=== PATIENT | female | born 1945 | race Caucasian/White ===

== ENCOUNTER 2024-04-29 07:35 | Inpatient (IN) | payer MEDICARE, OTHER ==
[~2024-04-29] VITALS: Ht 162.6 cm; Wt 108.5 kg
[2024-04-29 08:19] LABS: BASO % 0.2 % (0.0-1.0); EOS # 0.1 10^3/uL (0.0-0.5); EOS % 0.5 % (0.0-3.0); HEMATOCRIT 40.2 % (36.0-47.0); HEMOGLOBIN 12.8 g/dl (12.0-15.5); LYMPH # 1.4 10^3/uL (1.5-5.0); LYMPH % 10.3 % (24.0-44.0); MEAN CORPUSCULAR HEMOGLOBIN 29.8 pg (27.0-33.0); MEAN CORPUSCULAR HGB CONC 31.8 g/dl (32.0-36.5); MEAN CORPUSCULAR VOLUME 93.5 fl (80.0-96.0); MONO # 1.3 10^3/uL (0.0-0.8); MONO % 9.9 % (2.0-8.0); NEUTROPHILS # 10.4 10^3/uL (1.5-8.5); NEUTROPHILS % 78.6 % (36.0-66.0); PLATELET COUNT, AUTOMATED 178 10^3/uL (150-450); WHITE BLOOD COUNT 13.2 10^3/uL (4.0-10.0)
[2024-04-29] MEDS ORDERED: ALLO10TA PO (08:24)
[2024-04-29] MEDS ORDERED: IRON27TA2 PO (08:24)
[2024-04-29] MEDS ORDERED: LEVO50TA5 PO (08:24)
[2024-04-29] MEDS ORDERED: OXYB10TA23 PO (08:24)
[2024-04-29] MEDS ORDERED: LISI5TAB11 PO (08:24)
[2024-04-29] MEDS ORDERED: ROPI1TAB73 PO (08:24)
[2024-04-29] MEDS ORDERED: CLOP75TA99 PO (08:24)
[2024-04-29] MEDS ORDERED: CARV6.25 PO (08:24)
[2024-04-29] MEDS ORDERED: SPIR-10 PO (08:24)
[2024-04-29] MEDS ORDERED: PROZ20CA11 PO (08:24)
[2024-04-29] MEDS ORDERED: CELE0.09 PO (08:24)
[2024-04-29] MEDS ORDERED: PRAV10TA4 PO (08:24)
[2024-04-29 08:44] LABS: ALBUMIN 3.3 G/DL (3.2-5.2); ALKALINE PHOSPHATASE 130 U/L (35-104); ALT/SGPT 10 U/L (7.0-40); AST/SGOT < 8 U/L (<34); BILIRUBIN,DIRECT 0.3 MG/DL (<0.4); BILIRUBIN,TOTAL 0.8 MG/DL (0.3-1.2); BLOOD UREA NITROGEN 34 MG/DL (9-23); CALCIUM LEVEL 10.5 MG/DL (8.3-10.6); CARBON DIOXIDE LEVEL 23 MMOL/L (20-31); CHLORIDE LEVEL 108 MMOL/L (98-107); CK-MB VALUE MASS 2.1 NG/ML (<3.6); CPK CREATINE PHOSPHOKINASE 22 U/L (34-145); CREATININE FOR GFR 1.37 MG/DL (0.55-1.30); GLOMERULAR FILTRATION RATE 39.8 (>39); GLUCOSE, FASTING 131 MG/DL (74-106); MB/CK RELATIVE INDEX 9.54 (< OR =4); POTASSIUM SERUM 4.8 MMOL/L (3.5-5.1); SODIUM LEVEL 137 MMOL/L (136-145); TOTAL PROTEIN 6.3 G/DL (5.7-8.2)
[2024-04-29 08:47] LABS: THYROXINE (T4) 7.9 UG/DL (4.5-10.9)
[2024-04-29 08:48] LABS: THYROID STIMULATING HORMONE 4.459 uIU/ML (0.55-4.78)
[2024-04-29] MEDS ORDERED: HOME MED LIST COMPLETE! XX SCH (09:20)
[2024-04-29] MEDS ORDERED: MED REC CURRENTLY UNOBTAINABLE XX SCH (09:20)
[2024-04-29] MEDS ORDERED: ISOVUE-370 76% 100ML VIAL As Ordered ONE (10:19)
[2024-04-29] MEDS: IPRATROPIUM 0.5MG/ALBUTEROL 2.5MG INH SOL UD 3ML (DUONEB) NEB ONE (11:23)
[2024-04-29 12:04] LABS: INR 1.1; PROTHROMBIN TIME 14.5 SECONDS (12.5-14.5)
[2024-04-29] MEDS ORDERED: HEPARIN SOD (PORCINE) 5000UNITS/ML 1ML VIAL/SYRINGE IV PRN (12:35)
[2024-04-29] MEDS: HEPARIN DRIP 25,000 UNITS in IV 1 EA IV SCH (13:30)
[2024-04-29] MEDS: HEPARIN SOD (PORCINE) 5000UNITS/ML 1ML VIAL/SYRINGE IV ONE (13:31)
[2024-04-29] MEDS: oxyBUTYnin *DITROPAN XL* 5 MG TABCR PO SCH (13:52)
[2024-04-29] MEDS: LEVOTHYROXINE 50MCG TABLET (0.05MG) PO SCH (13:52)
[2024-04-29] MEDS: FLUoxetine 20MG CAP PO SCH (13:52)
[2024-04-29] MEDS: allopurinoL 300 MG TAB PO SCH (13:52)
[2024-04-29 14:25] VITALS: BP 145/63; TEMP 97.9; O2SAT 95
[2024-04-29] MEDS ORDERED: BUPR-597 PO (14:45)
[2024-04-29] MEDS ORDERED: TRAM50TA2 PO (14:45)
[2024-04-29] MEDS ORDERED: AMOX875T PO (14:45)
[2024-04-29] MEDS ORDERED: FURO40TA2 PO (14:45)
[2024-04-29] MEDS ORDERED: [UNRECOGNIZED DRUG - CODE] PO (14:45)
[2024-04-29] MEDS ORDERED: SPIR1CAP INH (14:45)
[2024-04-29] MEDS ORDERED: TIRZ2.5P SQ (14:45)
[2024-04-29] MEDS ORDERED: ALBU8.5H INH (14:45)
[2024-04-29] MEDS ORDERED: CARV3.12 PO (14:45)
[2024-04-29] MEDS ORDERED: traMADol 50 MG TAB PO PRN (15:00)
[2024-04-29] MEDS ORDERED: IPRATROPIUM 0.5MG/ALBUTEROL 2.5MG INH SOL UD 3ML (DUONEB) NEB PRN (15:00)
[2024-04-29 15:55] VITALS: BP 120/80; TEMP 97.8; O2SAT 95
[2024-04-29] MEDS: PRAVASTATIN 10 MG TAB PO SCH (18:58)
[2024-04-29] MEDS: buPROPion **XL** TABLET 150MG (WELLBUTRIN XL) PO SCH (18:58)
[2024-04-29] MEDS: rOPINIRole 1MG TAB PO SCH (20:06)
[2024-04-29] MEDS: DOCUSATE SODIUM 100MG CAPSULE PO SCH (20:07)
[2024-04-29 20:27] VITALS: BP 112/73; TEMP 97.7; O2SAT 99
[2024-04-29 23:43] VITALS: BP 135/61; TEMP 98.2; O2SAT 95
[2024-04-30] VITALS (9 sets, daily range): BP systolic 125–168; BP diastolic 53–84; TEMP 96.8–98.2; O2SAT 95–98
[2024-04-30 05:10] LABS: HEMATOCRIT 40.3 % (36.0-47.0); HEMOGLOBIN 12.7 g/dl (12.0-15.5); MEAN CORPUSCULAR HEMOGLOBIN 29.7 pg (27.0-33.0); MEAN CORPUSCULAR HGB CONC 31.5 g/dl (32.0-36.5); MEAN CORPUSCULAR VOLUME 94.4 fl (80.0-96.0); PLATELET COUNT, AUTOMATED 233 10^3/uL (150-450); RED BLOOD COUNT 4.27 10^6/uL (4.00-5.40); WHITE BLOOD COUNT 17.6 10^3/uL (4.0-10.0)
[2024-04-30 05:36] LABS: CALCIUM LEVEL 9.9 MG/DL (8.3-10.6); CREATININE FOR GFR 1.35 MG/DL (0.55-1.30); GLOMERULAR FILTRATION RATE 40.5 (>39); POTASSIUM SERUM 4.5 MMOL/L (3.5-5.1)
[2024-04-30] MEDS: ACETAMINOPHEN 325 MG TAB PO ONE (06:11)
[2024-04-30] MEDS: TIOTROPIUM INHALER/CAPSULE (SPIRIVA) INH SCH (08:27)
[2024-04-30] MEDS: FERROUS SULFATE 325MG TAB PO SCH (09:04)
[2024-04-30 09:45] LABS: PROCALCITONIN 0.13 ng/ml
[2024-04-30 10:45] LABS: DRVV SCREEN 38.6 SECONDS
[2024-04-30 10:51] LABS: PTT LUPUS TYPE ANTICOAG SCREEN 0.98 (0-1.20)
[2024-04-30] MEDS: SYMBICORT 160/4.5MCG INHALER 6GM INH SCH (11:40)
[2024-04-30] MEDS ORDERED: ISOVUE-300 61% 100ML VIAL As Ordered ONE (16:53)
[2024-04-30] MEDS ORDERED: HEPARIN 1,000UNITS/ML 10ML VIAL (FOR RADIOLOGY & DIALYSIS ONLY) As Ordered ONE (17:22)
[2024-05-01] VITALS (20 sets, daily range): BP systolic 124–150; BP diastolic 55–70; TEMP 97.3–98.3; O2SAT 93–98
[2024-05-01 02:31] LABS: CARDIOLIPIN IGA ANTIBODY < 2.0 APL-U/mL (<20.0); CARDIOLIPIN IGG ANTIBODY < 2.0 GPL-U/mL (<20.0); CARDIOLIPIN IGM ANTIBODY < 2.0 MPL-U/mL (<20.0)
[2024-05-01 07:43] LABS: BASO % 0.2 % (0.0-1.0); EOS % 0.4 % (0.0-3.0); HEMATOCRIT 32.5 % (36.0-47.0); LYMPH # 1.1 10^3/uL (1.5-5.0); LYMPH % 10.2 % (24.0-44.0); MEAN CORPUSCULAR HEMOGLOBIN 30.5 pg (27.0-33.0); MEAN CORPUSCULAR HGB CONC 32.6 g/dl (32.0-36.5); MEAN CORPUSCULAR VOLUME 93.7 fl (80.0-96.0); MONO # 1.2 10^3/uL (0.0-0.8); MONO % 10.5 % (2.0-8.0); NEUTROPHILS # 8.6 10^3/uL (1.5-8.5); NEUTROPHILS % 78.2 % (36.0-66.0); PLATELET COUNT, AUTOMATED 181 10^3/uL (150-450); RED BLOOD COUNT 3.47 10^6/uL (4.00-5.40)
[2024-05-01 07:45] LABS: HEMOGLOBIN 10.6 g/dl (12.0-15.5)
[2024-05-01 08:07] LABS: CALCIUM LEVEL 9.7 MG/DL (8.3-10.6); CREATININE FOR GFR 1.13 MG/DL (0.55-1.30); GLOMERULAR FILTRATION RATE 49.7 (>39); POTASSIUM SERUM 4.8 MMOL/L (3.5-5.1)
[2024-05-01] MEDS ORDERED: ELIQ5TAB PO (10:38)
[2024-05-01] MEDS: FUROSEMIDE 40MG/4ML VIAL IV ONE (12:17)
[2024-05-02] VITALS (11 sets, daily range): BP systolic 137–161; BP diastolic 62–83; TEMP 98–98.9; O2SAT 93–96
[2024-05-02 06:51] LABS: BASO % 0.2 % (0.0-1.0); EOS # 0.2 10^3/uL (0.0-0.5); EOS % 2.4 % (0.0-3.0); HEMATOCRIT 30.5 % (36.0-47.0); LYMPH # 1.2 10^3/uL (1.5-5.0); LYMPH % 14.9 % (24.0-44.0); MEAN CORPUSCULAR HEMOGLOBIN 30.5 pg (27.0-33.0); MEAN CORPUSCULAR HGB CONC 32.8 g/dl (32.0-36.5); MONO # 0.7 10^3/uL (0.0-0.8); MONO % 9.2 % (2.0-8.0); NEUTROPHILS # 5.8 10^3/uL (1.5-8.5); NEUTROPHILS % 72.7 % (36.0-66.0); PLATELET COUNT, AUTOMATED 184 10^3/uL (150-450); RED BLOOD COUNT 3.28 10^6/uL (4.00-5.40)
[2024-05-02 07:25] LABS: CREATININE FOR GFR 1.26 MG/DL (0.55-1.30); GLOMERULAR FILTRATION RATE 43.8 (>39); POTASSIUM SERUM 4.3 MMOL/L (3.5-5.1)
[2024-05-02] MEDS: IPRATROPIUM 0.5MG/ALBUTEROL 2.5MG INH SOL UD 3ML (DUONEB) NEB SCH (08:00)
[2024-05-02] MEDS: FUROSEMIDE 40MG/4ML VIAL IV ONE (10:50)
[2024-05-02] MEDS: methylPREDNISolone 125MG 2ML VIAL IV ONE (10:50)
[2024-05-03] VITALS (14 sets, daily range): BP systolic 151–172; BP diastolic 71–89; TEMP 98–98.9; O2SAT 92–96
[2024-05-03 04:30] LABS: EOS % 0.2 % (0.0-3.0); LYMPH # 0.5 10^3/uL (1.5-5.0); LYMPH % 7.3 % (24.0-44.0); MEAN CORPUSCULAR HEMOGLOBIN 29.6 pg (27.0-33.0); MEAN CORPUSCULAR HGB CONC 32.3 g/dl (32.0-36.5); MEAN CORPUSCULAR VOLUME 91.7 fl (80.0-96.0); MONO # 0.3 10^3/uL (0.0-0.8); MONO % 5.3 % (2.0-8.0); NEUTROPHILS # 5.4 10^3/uL (1.5-8.5); NEUTROPHILS % 86.6 % (36.0-66.0); PLATELET COUNT, AUTOMATED 199 10^3/uL (150-450); RED BLOOD COUNT 3.38 10^6/uL (4.00-5.40); WHITE BLOOD COUNT 6.3 10^3/uL (4.0-10.0)
[2024-05-03 04:54] LABS: CALCIUM LEVEL 9.5 MG/DL (8.3-10.6); CREATININE FOR GFR 1.24 MG/DL (0.55-1.30); GLOMERULAR FILTRATION RATE 44.7 (>39); POTASSIUM SERUM 4.3 MMOL/L (3.5-5.1)
[2024-05-03] MEDS: predniSONE 20 MG TAB PO SCH (09:16)
[2024-05-03] MEDS: lisinopriL 5 MG TAB PO SCH (09:16)
[2024-05-03] MEDS: CARVedilol 3.125 MG TAB PO SCH (09:16)
[2024-05-03] MEDS ORDERED: LISI10TA22 PO (10:44)
[2024-05-03] MEDS ORDERED: PRED10TA2 PO (10:44)
[2024-05-03] MEDS: lisinopriL 5 MG TAB PO ONE (11:20)
[2024-05-03] MEDS: APIXABAN 5 MG TAB (ELIQUIS) PO SCH (11:20)
[2024-05-03 17:27] LABS: PHOSPHOLIPIDS LEVEL 139 mg/dL (151-264)
[2024-05-04 02:32] LABS: PROTEIN C FUNCTIONAL ACTIVITY 78 % normal (70-180); PROTEIN S FUNCTIONAL ACTIVITY 61 % normal (60-140)
[2024-05-05 01:32] LABS: ANTI THROMBIN 3 ANTIGEN IMMUNO 95 % normal (80-120); ANTI THROMBIN 3 FUNCT ACTIVITY 99 % normal (80-135)
== END 2024-05-03 13:19 | disposition home or self-care (01) | DRG 164 ==
LOC: M ED 07:35 → M ED INP 12:34 → M PCU 14:10
PROVIDERS: ADMIT Internal Medicine; ATTEND Internal Medicine
PROC: B246ZZZ Ultrasonography of Right and Left Heart (ICD-10-PCS; 2024-04-29)
PROC: 02CR3ZZ Extirpation of Matter from Left Pulmonary Artery, Percutaneous Approach (ICD-10-PCS; 2024-04-30)
PROC: 02CQ3ZZ Extirpation of Matter from Right Pulmonary Artery, Percutaneous Approach (ICD-10-PCS; principal; 2024-04-30 15:00)
DX: I26.92 Saddle embolus of pulmonary artery without acute cor pulmonale (principal); N17.9 Acute kidney failure, unspecified; I69.354 Hemiplegia and hemiparesis following cerebral infarction affecting left non-dominant side; I82.432 Acute embolism and thrombosis of left popliteal vein; J44.1 Chronic obstructive pulmonary disease with (acute) exacerbation; I50.30 Unspecified diastolic (congestive) heart failure; I5A Non-ischemic myocardial injury (non-traumatic); L76.32 Postprocedural hematoma of skin and subcutaneous tissue following other procedure; I27.20 Pulmonary hypertension, unspecified; E03.9 Hypothyroidism, unspecified; G89.4 Chronic pain syndrome; F39 Unspecified mood [affective] disorder; E87.70 Fluid overload, unspecified; D50.9 Iron deficiency anemia, unspecified; I11.0 Hypertensive heart disease with heart failure; N32.81 Overactive bladder; M10.9 Gout, unspecified; G25.81 Restless legs syndrome; Z87.891 Personal history of nicotine dependence; Z79.890 Hormone replacement therapy; Z79.899 Other long term (current) drug therapy; Z90.49 Acquired absence of other specified parts of digestive tract; Z90.79 Acquired absence of other genital organ(s); Z11.52 Encounter for screening for COVID-19; Z79.02 Long term (current) use of antithrombotics/antiplatelets

== ENCOUNTER → 2024-05-13 | Outpatient (CLI) | payer MEDICARE, OTHER ==
[~2024-05-13] MED LIST: ALBU8.5H INH; ALLO10TA PO; AMOX875T PO; BUPR-597 PO; CARV3.12 PO; CARV6.25 PO; CELE0.09 PO; CLOP75TA99 PO; ELIQ5TAB PO; FURO40TA2 PO; IRON27TA2 PO; LEVO50TA5 PO; LISI10TA22 PO; LISI5TAB11 PO; OXYB10TA23 PO; PRAV10TA4 PO; PRED10TA2 PO; PROZ20CA11 PO; ROPI1TAB73 PO; SPIR-10 PO; SPIR1CAP INH; TIRZ2.5P SQ; TRAM50TA2 PO; [UNRECOGNIZED DRUG - CODE] PO
== END ==
LOC: M RAD 14:25
PROVIDERS: ATTEND Internal Medicine Hematology
DX: R06.02 Shortness of breath (principal); Z53.9 Procedure and treatment not carried out, unspecified reason

== ENCOUNTER → 2024-05-13 | Outpatient (CLI) | payer MEDICARE, OTHER ==
[~2024-05-13] MED LIST changes: +ISOVUE-370 76% 100ML VIAL As Ordered ONE
== END ==
LOC: M RAD 15:53
PROVIDERS: ATTEND Student in an Organized Health Care Education/Training Program
DX: J90 Pleural effusion, not elsewhere classified (principal); I26.99 Other pulmonary embolism without acute cor pulmonale; Z09 Encounter for follow-up examination after completed treatment for conditions other than malignant neoplasm; R06.02 Shortness of breath
CPT/HCPCS: 71275; Q9967

== ENCOUNTER → 2024-05-19 | Outpatient (POV) | payer OTHER ==
[~2024-05-19] VITALS: Ht 162.6 cm; Wt 108.1 kg
[~2024-05-19] MED LIST changes: -ISOVUE-370 76% 100ML VIAL As Ordered ONE; +SYMB16INH INH; +VENTAER INH
[2024-05-19 14:15] VITALS: BP 110/53; O2SAT 96
== END ==
LOC: M IRPOV 13:48
PROVIDERS: ATTEND Radiology Diagnostic Radiology
DX: Z48.812 Encounter for surgical aftercare following surgery on the circulatory system (principal); I26.92 Saddle embolus of pulmonary artery without acute cor pulmonale; J90 Pleural effusion, not elsewhere classified; I31.39 Other pericardial effusion (noninflammatory); E87.70 Fluid overload, unspecified; R06.09 Other forms of dyspnea; R32 Unspecified urinary incontinence; Z79.01 Long term (current) use of anticoagulants; T50.1X6A Underdosing of loop [high-ceiling] diuretics, initial encounter; Z91.128 Patient's intentional underdosing of medication regimen for other reason
CPT/HCPCS: 36415; 80053; 83880; 85025; G0463

== ENCOUNTER → 2024-05-19 | Outpatient (CLI) | payer OTHER ==
[~2024-05-19] MED LIST changes: -SYMB16INH INH
[2024-05-19 15:46] LABS: BASO # 0.1 10^3/uL (0.0-0.2); BASO % 0.4 % (0.0-1.0); EOS # 0.1 10^3/uL (0.0-0.5); EOS % 0.7 % (0.0-3.0); HEMATOCRIT 34.2 % (36.0-47.0); HEMOGLOBIN 10.6 g/dl (12.0-15.5); LYMPH # 1.1 10^3/uL (1.5-5.0); LYMPH % 7.3 % (24.0-44.0); MEAN CORPUSCULAR HEMOGLOBIN 28.3 pg (27.0-33.0); MEAN CORPUSCULAR VOLUME 91.2 fl (80.0-96.0); MONO % 6.9 % (2.0-8.0); NEUTROPHILS # 12.3 10^3/uL (1.5-8.5); NEUTROPHILS % 82.8 % (36.0-66.0); PLATELET COUNT, AUTOMATED 370 10^3/uL (150-450); RED BLOOD COUNT 3.75 10^6/uL (4.00-5.40); WHITE BLOOD COUNT 14.9 10^3/uL (4.0-10.0)
[2024-05-19 16:07] LABS: ALBUMIN 2.3 G/DL (3.2-5.2); BILIRUBIN,TOTAL 0.4 MG/DL (0.3-1.2); CALCIUM LEVEL 10.3 MG/DL (8.3-10.6); CREATININE FOR GFR 1.37 MG/DL (0.55-1.30); GLOMERULAR FILTRATION RATE 39.8 (>39); POTASSIUM SERUM 5.1 MMOL/L (3.5-5.1); TOTAL PROTEIN 6.1 G/DL (5.7-8.2)
== END ==
LOC: M LAB 13:52
PROVIDERS: ATTEND Student in an Organized Health Care Education/Training Program
DX: Z09 Encounter for follow-up examination after completed treatment for conditions other than malignant neoplasm (principal); R06.02 Shortness of breath

== ENCOUNTER 2024-05-31 17:33 | Emergency (ER) | payer OTHER ==
[~2024-05-31] VITALS: Ht 157.5 cm; Wt 105.7 kg
[2024-05-31 18:37] LABS: BASO % 0.2 % (0.0-1.0); EOS % 0.2 % (0.0-3.0); HEMATOCRIT 27.5 % (36.0-47.0); HEMOGLOBIN 8.5 g/dl (12.0-15.5); LYMPH # 0.9 10^3/uL (1.5-5.0); LYMPH % 10.8 % (24.0-44.0); MEAN CORPUSCULAR HEMOGLOBIN 28.1 pg (27.0-33.0); MEAN CORPUSCULAR HGB CONC 30.9 g/dl (32.0-36.5); MEAN CORPUSCULAR VOLUME 91.1 fl (80.0-96.0); MONO # 0.6 10^3/uL (0.0-0.8); MONO % 6.7 % (2.0-8.0); NEUTROPHILS # 6.8 10^3/uL (1.5-8.5); NEUTROPHILS % 80.4 % (36.0-66.0); PLATELET COUNT, AUTOMATED 346 10^3/uL (150-450); RED BLOOD COUNT 3.02 10^6/uL (4.00-5.40); WHITE BLOOD COUNT 8.5 10^3/uL (4.0-10.0)
[2024-05-31 18:50] LABS: INR 2.19; PARTIAL THROMBOPLASTIN TIME 47.3 SECONDS (24.8-34.2); PROTHROMBIN TIME 24.4 SECONDS (12.5-14.5)
[2024-05-31 19:01] LABS: ETHYL ALCOHOL (ETHANOL) 0.003 % (0.000-0.010)
[2024-05-31 19:03] LABS: ALBUMIN 2.5 G/DL (3.2-5.2); BILIRUBIN,DIRECT 0.2 MG/DL (<0.4); BILIRUBIN,TOTAL 0.5 MG/DL (0.3-1.2); CALCIUM LEVEL 9.9 MG/DL (8.3-10.6); CREATININE FOR GFR 1.71 MG/DL (0.55-1.30); GLOMERULAR FILTRATION RATE 30.8 (>39); POTASSIUM SERUM 4.8 MMOL/L (3.5-5.1); TOTAL PROTEIN 5.5 G/DL (5.7-8.2)
[2024-05-31] MEDS ORDERED: ISOVUE-370 76% 100ML VIAL As Ordered ONE (19:23)
[2024-05-31] MEDS: PANTOPRAZOLE 40MG VIAL IV ONE (20:17)
[2024-05-31] MEDS ORDERED: ELIQ5TAB PO (21:47)
[2024-05-31] MEDS ORDERED: LISI10TA22 PO (21:47)
[2024-05-31] MEDS ORDERED: HOME MED LIST COMPLETE! XX SCH (21:50)
[2024-05-31 23:00] LABS: HEMATOCRIT 24.4 % (36.0-47.0); HEMOGLOBIN 7.4 g/dl (12.0-15.5); MEAN CORPUSCULAR HEMOGLOBIN 27.7 pg (27.0-33.0); MEAN CORPUSCULAR HGB CONC 30.3 g/dl (32.0-36.5); MEAN CORPUSCULAR VOLUME 91.4 fl (80.0-96.0); PLATELET COUNT, AUTOMATED 257 10^3/uL (150-450); RED BLOOD COUNT 2.67 10^6/uL (4.00-5.40); WHITE BLOOD COUNT 5.8 10^3/uL (4.0-10.0)
[2024-05-31 23:58] VITALS: BP 98/49; TEMP 96.9
[2024-06-01] MEDS: TIOTROPIUM INHALER/CAPSULE (SPIRIVA) INH STA (00:11)
[2024-06-01 00:46] VITALS: BP 131/57; TEMP 98.9; O2SAT 98
[2024-06-01] MEDS ORDERED: SYMB16INH INH (12:51)
== END 2024-06-01 01:23 | disposition short-term general hospital (02) ==
LOC: M ED 17:33
DX: K92.2 Gastrointestinal hemorrhage, unspecified (principal); I44.0 Atrioventricular block, first degree; J44.9 Chronic obstructive pulmonary disease, unspecified; I10 Essential (primary) hypertension; K64.8 Other hemorrhoids; Z79.51 Long term (current) use of inhaled steroids; Z79.01 Long term (current) use of anticoagulants; Z79.899 Other long term (current) drug therapy
CPT/HCPCS: 36430; 71045; 74174; 80048; 80076; 82077; 83605; 83690; 85025; 85027; 85384; 85610; 85730; 86850; 86900; 86901; 86920; 93005; 94640; 96374; 99285; J2470; P9016; Q9967